=== PATIENT | male | born 1945 | race Hispanic/Latino ===

== ENCOUNTER 2017-11-06 12:24 | Outpatient (CLI) | payer MEDICARE ==
--- NOTE | 2017-11-06 13:36 | XRay Report ---
XRAY CHEST TWO VIEWS: 11/06/17 12:24:00 CLINICAL: Cough. COMPARISON: None FINDINGS: Normal heart and pulmonary vasculature.Bilateral upper lobe, perihilar and apical reticular lung opacities. The left hilum is retracted superiorly. Perihilar opacities on lateral view suggest peribronchovascular interstitial thickening. No pulmonary consolidation. No pleural effusion. No mass, nodule or lymphadenopathy.Median sternotomy wires and mediastinal surgical clips. IMPRESSION: Bilateral upper lobe interstitial disease with a pattern consistent with chronic granulomatous disease.The differential includes old granulomatous disease such as TB or histoplasmosis as well as sarcoidosis.
== END 2017-11-06 12:25 | disposition home or self-care (01) ==
LOC: SPVIMAG 12:24
PROVIDERS: ATTEND Internal Medicine
DX: J06.9 Acute upper respiratory infection, unspecified (principal); J84.9 Interstitial pulmonary disease, unspecified; Z98.890 Other specified postprocedural states
CPT/HCPCS: 71046